=== PATIENT | female | born 1960 | race African-American/Black ===

== ENCOUNTER → 2017-03-22 | Outpatient (CLI) | payer MEDICARE, OTHER ==
[2015-12-12 17:27] VITALS: BP 177/84
--- NOTE | 2017-03-22 10:38 | KCIC ---
Bone mineral density exam History: Diabetes, hysterectomy Comparison: None Findings: Bone mineral density examination utilizing DEXA was performed. Right hip bone mineral density of 0.858 g/cm2 corresponds with a T score -0.7, Z score -0.4. The bone mineral density of the lumbar spine was 1.382 g/cm2 which corresponds with a T-score of 3.0, Z score 3.5. By World Congress on Osteoporosis criteria, a T score of 0 to-1 SD is considered to be within normal limits. A T score of -1 to -2.5 SD is considered osteopenia. A T score less than -2.5 SD is considered osteoporosis Impression: 1. There is normal bone density of the lumbar spine and the right hip. Electronically signed by: Ross Beaver MD (03/22/2017 10:35 AM) [facility]
--- NOTE | 2017-03-22 16:01 | RAD ---
DATE: 03/22/2017 EXAM: MAMMO HYACINTH SCREENING BILATERAL HISTORY: Routine screening COMPARISON: 06/29/2015 The breast parenchyma shows scattered fibroglandular densities. Breast parenchyma level B. FINDINGS: 2-D and 3-D tomosynthesis imaging was performed in CC and MLO projections. There is mild distortion of both breasts in this patient with the history of previous chest wall cui. There are multiple bilateral nodules, better demonstrated on the current tomographic images. Some of these on the right containing coarse calcifications compatible with fibroadenomas. No definite new or enlarging breast nodules are seen. There are additional scattered benign type calcifications in both breasts. No suspicious microcalcifications have developed. IMPRESSION: Stable mammograms without evidence of malignancy. BI-RADS CATEGORY: 2 BENIGN FINDING(S) RECOMMENDED FOLLOW-UP: 12M 12 MONTH FOLLOW-UP PQRS compliance statement: Patient information was entered into a reminder system with a target due date for the next mammogram. Mammography is a sensitive method for finding small breast cancers, but it does not detect them all and is not a substitute for careful clinical examination. A negative mammogram does not negate a clinically suspicious finding and should not result in delay in biopsying a clinically suspicious abnormality. "Our facility is accredited by the [employer] Mammography Program."
== END | disposition home or self-care (01) ==
LOC: KCIC MAMMO 09:43
PROVIDERS: ATTEND Internal Medicine
DX: Z12.31 Encounter for screening mammogram for malignant neoplasm of breast (principal); Z13.820 Encounter for screening for osteoporosis; E11.9 Type 2 diabetes mellitus without complications; Z78.0 Asymptomatic menopausal state; Z90.710 Acquired absence of both cervix and uterus
CPT/HCPCS: 77063; 77080; G0202; 77067

== ENCOUNTER 2017-04-13 22:46 | Emergency (ER) | payer MEDICARE, OTHER ==
[~2017-04-13] VITALS: Ht 162.6 cm; Wt 120.2 kg
[2017-04-13] MEDS: diphenhydrAMINE 50 MG/ML VIAL IM ONE (23:00)
[2017-04-13] MEDS: PROCHLORPERAZINE 10 MG/2 ML VIAL. IV ONE (23:00)
[2017-04-13] MEDS: ACETAMINOPHEN 325 MG TABLET. PO ONE (23:00)
[2017-04-13] MEDS: IBUPROFEN 400 MG TABLET. PO ONE (23:01)
--- NOTE | 2017-04-13 23:08 | PHYS DOC ---
Past Medical History Past Medical History: Cancer, CVA, High Cholesterol, Hypertension, Unknown Additional Past Medical Histor: "lung disease", seasonal allergies, KIDNEY CA Past Surgical History: Hysterectomy, Other Additional Past Surgical Histo: SKIN GRAFT, BIOPSY RT BREAST Alcohol Use: None Drug Use: None Adult General Chief Complaint Chief Complaint: HEADACHE HPI HPI Patient is a 56 year old female who presents with the headache is right-sided, started this morning, similar to previous. Patient took Tylenol this morning once did not take any other medications pain was not going away so he came to the ER at 2300. Patient also complains of chronic back pain. Patient denies any other symptoms or deficits. Patient does not describe any focal weakness or numbness or changes in vision. Patient is ambulatory with a cane which is her baseline. Patient denies any fevers, chills, rashes, vomiting, sick contacts, trauma. Review of Systems Review of Systems Constitutional: Denies fever or chills [] Eyes: Denies change in visual acuity, redness, or eye pain [] HENT: Denies nasal congestion or sore throat, mild mild neck soreness that is diffuse Respiratory: Denies cough or shortness of breath [] Cardiovascular: No chest pain GI: Denies abdominal pain, nausea, vomiting, bloody stools or diarrhea [] : Denies dysuria or hematuria [] Musculoskeletal: Low back pain similar to previous Integument: Denies rash or skin lesions [] Neurologic: Denies focal weakness or sensory changes. Yes to headache All other systems reviewed and found to be negative unless otherwise stated Current Medications Current Medications Current Medications Medications (Trade) Dose Ordered Sig/[facility] Start Time Stop Time Status Last Admin Dose Admin Acetaminophen (Tylenol) 650 mg 1X ONCE 04/13/17 23:30 04/13/17 23:31 DC 04/13/17 23:00 650 MG Diphenhydramine HCl (Benadryl) 25 mg 1X ONCE 04/13/17 23:00 04/13/17 23:01 DC Ibuprofen (Motrin) 400 mg 1X ONCE 04/13/17 23:30 04/13/17 23:31 DC 04/13/17 23:01 400 MG Prochlorperazine Edisylate (Compazine) 10 mg 1X ONCE 04/13/17 23:00 04/13/17 23:01 DC Allergies Allergies Allergies Coded Allergies Type Severity Reaction Last Updated Verified No Known Drug Allergies 04/12/14 No Physical Exam Physical Exam Constitutional: Well developed, well nourished, no acute distress, non-toxic appearance. [] HENT: Normocephalic, atraumatic, bilateral external ears normal, oropharynx dr, no oral exudates, nose normal. [] Eyes: PERRLA, EOMI, conjunctiva normal, no discharge. [] Neck: Normal range of motion, tenderness right side of the paraspinal muscles, supple, no stridor. No LAD, no meningeal signs Cardiovascular:Heart rate regular rhythm, no murmur, equal pulses, normal perfusion Lungs & Thorax: Bilateral breath sounds clear to auscultation, no tachypnea Abdomen: Bowel sounds normal, soft, no tenderness, no masses, no pulsatile masses. [] Skin: Warm, dry, no erythema, no rash. [] Back: Mild low back tenderness that is muscular and palpation reproduces symptoms, no midline tenderness, no step-offs, no CVA tenderness. [] Extremities: No tenderness, no cyanosis, no clubbing, ROM intact, no edema. [] Neurologic: Alert and oriented X 3, ambulates with cane from the room to the bathroom, no focal deficits noted. [] Psychologic: Affect normal, judgement normal, mood normal. [] Current Patient Data Vital Signs Vital Signs Date Time Temp Pulse Resp B/P (MAP) Pulse Ox O2 Delivery O2 Flow Rate FiO2 04/13/17 22:49 98.7 91 18 144/96 (112) 96 Room Air 98.7 EKG EKG [] Radiology/Procedures Radiology/Procedures [] Course & Med Decision Making Course & Med Decision Making Pertinent Labs and Imaging studies reviewed. (See chart for details) Patient states her headache is much improved, she states she is ready to go home. [] Dragon Disclaimer Dragon Disclaimer This electronic medical record was generated, in whole or in part, using a voice recognition dictation system. Departure Departure Impression: Primary Impression: Headache Disposition: 01 , SELF-CARE Condition: IMPROVED Referrals: WEST ELLIS MD (PCP) Please follow-up with your doctor for recheck and reevaluation in 2 days. Please remember you can take regular headache Tylenol every 4 hours 650 mg or ibuprofen 400 mg every 6 hours. Please for her to take at least a couple doses prior to considering coming to the ER Patient Instructions: General Headache Without Cause Brian NAJERA MD Apr 13, 2017 23:08
[2017-04-13 23:30] VITALS: BP 138/82
== END 2017-04-13 23:45 | disposition home or self-care (01) ==
LOC: ER 22:46
DX: R51 Headache (principal); E78.00 Pure hypercholesterolemia, unspecified; I10 Essential (primary) hypertension; Z86.73 Personal history of transient ischemic attack (TIA), and cerebral infarction without residual deficits
CPT/HCPCS: 99283

== ENCOUNTER → 2017-06-17 | Outpatient (CLI) | payer MEDICARE, MEDICAID ==
--- NOTE | 2017-06-18 12:39 | SLEEP ---
DATE OF STUDY: 06/17/2017 ATTENDING PHYSICIAN: Dr. West Banks. The patient is 56-year-old who weighs 277 pounds with a BMI of 45. The patient's Edwall score was 8. The patient had a sleep study 10 years ago and was positive for MEHNAZ. She has lost 25 pounds since then. Another split night study was performed. During the night study, the patient spent 419 minutes in bed and slept for 346 minutes with a sleep efficiency of 83%. Sleep latency was 33 minutes with a REM latency of 73 minutes. Overall, sleep architecture showed normal stage 1 sleep, increased stage 2 sleep, normal slow wave and reduced REM sleep. During the initial diagnostic portion of the study, the patient slept for 137 minutes. During that time, there were 91 obstructive apneas, no mixed or central apneas and 84 hypopneas. The patient's apnea hypopnea index was 77 per hour, supine index 120 per hour and a REM index of 57 per hour. EKG monitoring revealed normal sinus rhythm, average heart rate was 92 beats per minute, no sustained arrhythmias were observed. Nocturnal oximetry study revealed a mean oxygen saturation of 89%, with lowest of 62%. 61% of time oxygen saturation remained between 80% and 89%. PLMS were not seen. The patient met the criteria for CPAP initiation. It was started at 5 cm water and titrated up to 12 cm water. At the final pressure, the patient slept for 76 minutes. The patient had supine as well as REM sleep. The patient's AHI was reduced to 0 per hour and oxygen saturation remained above 88%. The patient used a large-sized nasal pillows. IMPRESSION: 1. Severe sleep apnea-hypopnea syndrome at an AHI of 77 per hour. 2. Nocturnal hypoxia secondary to obstructive sleep apnea, but resolved with CPAP. 3. No evidence of PLMS. RECOMMENDATIONS: 1. CPAP at 12 cm water completely eliminated patient's sleep apnea and should be used on a nightly basis. 2. Follow up in 4-6 weeks to assess compliance with CPAP and to document clinical improvement. 3. Weight loss is strongly advised. 4. Avoid [employer] depressants. 5. Caution regarding driving until symptoms of sleep apnea resolve with the use of CPAP. JESS LAW MD DR: DEDRA/elmer JOB#: [id number] / [id number] WEST Slaughter MD [facility]
== END | disposition home or self-care (01) ==
LOC: RT 18:14
PROVIDERS: ATTEND Internal Medicine Critical Care Medicine
DX: G47.33 Obstructive sleep apnea (adult) (pediatric) (principal)
CPT/HCPCS: 95810

== ENCOUNTER 2018-02-10 13:58 | Emergency (ER) | payer MEDICARE, OTHER ==
[2018-02-10] MEDS: CYCLOBENZAPRINE 10 MG TABLET. PO (14:40)
[2018-02-10] MEDS: HYDROcodone/APAP 5/325MG 1 TAB TABLET PO (14:40)
[2018-02-10] MEDS: NAPROXEN 500 MG TABLET PO (14:41)
== END 2018-02-10 16:31 | disposition home or self-care (01) ==
LOC: ER 16:31
DX: S30.0XXA Contusion of lower back and pelvis, initial encounter (principal); S80.01XA Contusion of right knee, initial encounter; S80.02XA Contusion of left knee, initial encounter; R51 Headache; M17.0 Bilateral primary osteoarthritis of knee; Z86.73 Personal history of transient ischemic attack (TIA), and cerebral infarction without residual deficits; E11.9 Type 2 diabetes mellitus without complications; E78.00 Pure hypercholesterolemia, unspecified; I10 Essential (primary) hypertension; Z90.710 Acquired absence of both cervix and uterus; W06.XXXA Fall from bed, initial encounter; Y93.89 Activity, other specified; Y99.8 Other external cause status; Y92.89 Other specified places as the place of occurrence of the external cause
CPT/HCPCS: 70450; 72100; 73564; 99284-25

== ENCOUNTER 2018-02-25 20:26 | Emergency (ER) | payer MEDICARE, MEDICAID ==
[~2018-02-25] VITALS: Ht 165.1 cm; Wt 112.0 kg
[~2018-02-25 20:26] MED LIST: ASPI81TA50 PO; ATOR40TA PO; BUDE10.2 IH; CALC1CAP7 PO; CARB200T PO; CLON0.5T PO; CLON1TAB4 PO; CLOZ100T7 PO; CYCL10TA2 PO; DOCU240C13 PO; EZET10TA18 PO; FLUO10CA13 PO; FLUO40CA9 PO; FURO-68 PO; HYDR-2868 PO; HYDR10TA2 PO; HYDR25TA9 PO; IBUP200T58 PO; LATA2.5D2 EACHEYE; LEVO25TA4 PO; LISI10TA2 PO; LOSA50TA6 PO; LURA40TA PO; NYST15PO9 TP; POTA10TA12 PO; PROAIR HFA8.5 GM INH; QUET200T4 PO; SENN-79 PO; TRAZ-85 PO; VENTOLIN HFA18 GM INH
[2018-02-25 21:15] LABS: BASO # 0.1 x10^3/uL (0.0-0.2); BASO % 1 % (0-3); EOS # 0.2 x10^3/uL (0.0-0.7); EOS % 2 % (0-3); HEMATOCRIT 33.1 % (36.0-47.0); HEMOGLOBIN 10.6 g/dL (12.0-15.5); LYMPH # 0.9 x10^3/uL (1.0-4.8); LYMPH % 12 % (24-48); MEAN CORPUSCULAR HEMOGLOBIN 25 pg (25-35); MEAN CORPUSCULAR HGB CONC 32 g/dL (31-37); MEAN CORPUSCULAR VOLUME 78 fL (79-100); MONO # 0.5 x10^3/uL (0.0-1.1); MONO % 6 % (0-9); NEUT # 6.5 x10^3uL (1.8-7.7); NEUT % 80 % (31-73); PLATELET COUNT 295 x10^3/uL (140-400); RED BLOOD COUNT 4.23 x10^6/uL (3.50-5.40); RED CELL DISTRIBUTION WIDTH 15.1 % (11.5-14.5); WHITE BLOOD COUNT 8.1 x10^3/uL (4.0-11.0)
[2018-02-25 21:29] LABS: CALCIUM 9.2 mg/dL (8.5-10.1); CREATININE 1.2 mg/dL (0.6-1.0); GFR 55.8; POTASSIUM 4.2 mmol/L (3.5-5.1)
[2018-02-25 21:35] LABS: ALBUMIN 3.4 g/dL (3.4-5.0); ALBUMIN/GLOBULIN RATIO 0.8 (1.0-1.7); TOTAL BILIRUBIN 0.5 mg/dL (0.2-1.0); TOTAL PROTEIN 7.7 g/dL (6.4-8.2)
[2018-02-25 23:00] VITALS: BP 110/61
[2018-02-26 00:19] LABS: BILIRUBIN,URINE NEGATIVE (NEG); CLARITY,URINE CLEAR; COLOR,URINE YELLOW; NITRITE,URINE NEGATIVE (NEG); PROTEIN,URINE NEGATIVE (NEG-TRACE)
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
[2018-02-26 00:24] LABS: BARBITURATES NEG (NEG); BENZODIAZEPINES NEG (NEG); CANNABINOIDS NEG (NEG); COCAINE NEG (NEG); METHADONE NEG (NEG); OPIATES NEG (NEG); PHENCYCLIDINE NEG (NEG)
[2018-02-26 00:30] LABS: AMPHETAMINE/METHAMPHETAMINE NEG (NEG)
[2018-02-26 00:37] LABS: BACTERIA,URINE MODERATE /HPF (0-FEW); RBC,URINE OCC /HPF (0-2)
[2018-02-26 00:38] LABS: HYALINE CASTS, URINE OCCASIONAL /HPF; SQUAMOUS EPITHELIAL CELL,UR MANY /LPF
[2018-02-26 01:33] LABS: CHOLESTEROL/HDL RATIO 4.6
== END 2018-02-26 02:15 ==
LOC: ER 20:26
DX: F20.0 Paranoid schizophrenia (principal); J45.909 Unspecified asthma, uncomplicated; E11.9 Type 2 diabetes mellitus without complications; E78.00 Pure hypercholesterolemia, unspecified; I10 Essential (primary) hypertension; Z59.0 Homelessness; Z86.73 Personal history of transient ischemic attack (TIA), and cerebral infarction without residual deficits; Z90.710 Acquired absence of both cervix and uterus
CPT/HCPCS: 36415; 80053; 80061; 80307; 81001; 84443; 85025; 87086; 99285; G0479